=== PATIENT | female | born 1985 | race Caucasian/White ===

== ENCOUNTER 2019-12-06 22:23 | Emergency (ER) | payer OTHER, SELFPAY ==
[2019-12-06 22:27] VITALS: BP 151/74; PULSE 83; RESP 16; TEMP 36.7; O2SAT 97; BMI 26.4
--- NOTE | 2019-12-06 22:32 | DI.RAD.S_ITS ---
PROCEDURE: XR ANKLE RT MIN 3V INDICATIONS: rolled R ankle TECHNIQUE: 3 views of the ankle were acquired. COMPARISON: None. FINDINGS: Bones: No fractures or dislocations. Ankle mortise is normally aligned. No suspicious bony lesions. Soft tissues: No tibiotalar joint effusion. Achilles tendon appears normal. IMPRESSION: No trauma found. Dictated by: Audie Baer M.D. on 12/07/2019 at 8:22 Approved by: Audie Baer M.D. on 12/07/2019 at 8:22
--- NOTE | 2019-12-06 23:29 | ED_ITS ---
HPI - Extremity Injury (Lower) General Chief Complaint: Extremity Injury, Lower Stated Complaint: Fell on right ankle Time Seen by Provider: 12/06/19 23:12 History of Present Illness HPI Narrative: Otherwise healthy 34-year-old woman was cleaning up toys this afternoon and missed the last step of the stairway and had an eversion injury to the right ankle. If felt well enough after a couple of hours for her to do a 30 minutes exercise workout again without any pain. When she went to sit down for dinner notice that the ankle was beginning to throb in she was having more difficulties walking on. Comes in for further evaluation. Related Data Home Medications Medication Instructions Recorded Confirmed Fluticasone Propionate (FLONASE) #0 03/17/13 [BCP's] #0 03/17/13 Review of Systems Review of Systems Narrative: Pertinent positive and negative findings as per HPI Remainder of review of systems is otherwise unremarkable for Constitutional: Fevers, chills, weakness CV: Chest pain, palpitations, dyspnea on exertion Respiratory: Cough, wheeze, dyspnea GI: Nausea, vomiting, diarrhea, change in bowel habits, black or bloody stools : Dysuria, hematuria, flank pain MS: Muscle weakness, numbness, joint swelling or warmth Skin: Rashes, nonhealing lesions Patient History Medical History Oral contraceptive use (Acute) alcohol intake frequency: holidays/special occasions only Substance Use Type: does not use Exam Narrative Exam Narrative: General: Alert appropriate in no acute distress Respiratory: Able to speak in full sentences, no obvious respiratory distress Skin: No obvious rashes, warm and dry Neurologic: Grossly intact no obvious asymmetries or abnormalities Psych, appropriate insight and affect, cooperative Extremity: Right ankle with some minor abrasion laterally. She is not tender on either malleolus or at the base of the 5th metatarsal. There is minor edema and no ecchymosis. Neurovascularly intact Indication: Right ankle air splint Splint was placed by me Exam post placement reveals appropriate splinting and neurovascularly intact Tolerated well with pain better controlled with appropriate stabilization Initial Vital Signs Initial Vital Signs: Vital Signs Temperature 98.1 F 12/06/19 22:27 Pulse Rate 83 12/06/19 22:27 Respiratory Rate 16 12/06/19 22:27 Blood Pressure 151/74 H 12/06/19 22:27 Pulse Oximetry 97 12/06/19 22:27 Course Orders Ordered: ED Orders 12/06/19 22:32 XR ankle RT min 3V Stat Discontinued Medications Ibuprofen (Advil) 400 mg PO NOW ONE Stop: 12/06/19 23:22 Oxycodone/Acetaminophen (Percocet 5/325) 1 tab PO NOW ONE Stop: 12/06/19 23:22 Vital Signs Vital signs: Vital Signs - 8 hr 12/06/19 22:27 Temperature 98.1 F Pulse Rate 83 Respiratory Rate 16 Blood Pressure 151/74 H Pulse Oximetry 97 MDM - Extremity Injury (Lower) Imaging Data Right ankle x-ray: Attestation: I personally reviewed and interpreted this imaging study as follows: My Impression: No fractures noted MDM Narrative Medical decision making narrative: Right ankle sprain. No evidence of fracture. Air splint placed by me tolerated well. Safe for home discharge Discharge Plan Departure Patient Disposition: Home Clinical Impression: Ankle sprain Qualifiers: Encounter type: initial encounter Involved ligament of ankle: unspecified ligament Laterality: right Qualified Code(s): S93.401A - Sprain of unspecified ligament of right ankle, initial encounter Instructions: DI for Ankle Sprain Activity Restrictions/Additional Instructions: Thank you for coming in tonight The x-ray did not suggest any fractures. It will be officially read tomorrow by the radiologist and they disagree he will receive a phone call. I have placed at [facility] ankle splint. If there for comfort and to give your ankle bit more stability is it heals. You can stop using it when it is no longer beneficial in controlling pain and adding stability. Using 400 mg of ibuprofen (2 [id number] pills) and 1 Tylenol every 6 hours can be very helpful in controlling pain. Please follow-up with your primary care physician if this is not improving w ithin 5-6 days. I hope you feel better soon Prescriptions: No Action Fluticasone Propionate (FLONASE) Qty: 0 RF: 0 [BCP's] Qty: 0 RF: 0
[2019-12-06] MEDS: OXYCODONE/ACETAMINOPHEN 5/325 TABLET 1 TAB PO (23:55)
[2019-12-06] MEDS: IBUPROFEN 400 MG TABLET PO (23:56)
== END 2019-12-07 | disposition home or self-care (01) ==
PROVIDERS: Emergency Provider Emergency Medicine
DX: S93.401A Sprain of unspecified ligament of right ankle, initial encounter (principal); W10.9XXA Fall (on) (from) unspecified stairs and steps, initial encounter
CPT/HCPCS: 73610; 99283